=== PATIENT | female | born 1950 | race Caucasian/White ===

== ENCOUNTER 2024-08-15 23:00 | Emergency (ER) | payer MEDICARE ==
[~2024-08-15] VITALS: Ht 160 cm; Wt 76.7 kg
[~2024-08-15 23:00] MED LIST: AMIO200T44 PO; APIX2.5T PO; ASPI-1005 PO; ATOR40TA71 PO; CLOP75TA32 PO; DOCU100C33 PO; DONE5TAB33 PO; DULO30CA52 PO; GABA300T25; HYDR25TA67 PO; ISOS30TA92 PO; LISI20TA24 PO; MELA5TAB66 PO; METO10TA3 PO; METO50TA9 PO; MORP-108 PO; PANT40TA54 PO; POLY17PO4 PO; RAMI5CAP10 PO
[2024-08-15 23:02] VITALS: TEMP 98.4
--- NOTE | 2024-08-15 23:47 | ERN ---
General Chief Complaint: Trauma Activation Stated Complaint: FALL, HEAD TRAUMA, TAKING ELIQUIS Time Seen by MD: 23:06 History of Present Illness Initial Comments Patient is a 74-year-old female with atrial fibrillation on Eliquis. She is at a [employer] and she was packing up her boxes to move out. One box was particularly enlarge and when she tried to fill it or move it she lost her balance falling against the box and then bumping her head against the bed. She had no loss of consciousness. She has had poor balance for several years now and she has talked to her primary care doctor about it but he has not done anything about it. Currently patient has no symptoms other than pain on her head where she has a small laceration on the superior parietal region. Allergies: Coded Allergies: codeine (Unverified Allergy, Unknown, UNKNOWN, 04/16/24) PT STATES IT "MAKES ME SICK" Home Meds Active Scripts Isosorbide Mononitrate (Isosorbide Mononitrate ER) 30 Mg Tab.er.24h, 1 TAB PO DAILY for 30 Days, #30 TAB 0 Refills Prov:ROSALIA SHANKS MD 05/27/24 Metoprolol Succinate (Toprol Xl) 50 Mg Tab.er.24h, 50 MG PO DAILY, #30 TAB 0 Refills Prov:ROSALIA SHANKS MD 05/27/24 Lisinopril (Lisinopril) 20 Mg Tablet, 20 MG PO DAILY, #30 TAB Prov:ROSALIA SHANKS MD 05/27/24 Apixaban (Eliquis) 2.5 Mg Tablet, 2.5 MG PO BID, #60 TAB Prov:ROSALIA SHANKS MD 05/27/24 Amiodarone HCl (Pacerone) 200 Mg Tablet, 200 MG PO DAILY, #60 TAB Start once 400mg dose has been completed Prov:ROSALIA SHANKS MD 05/27/24 Amiodarone HCl (Pacerone) 200 Mg Tablet, 400 MG PO BID, #13 TAB 0 Refills Prov:ROSALIA SHANKS MD 05/27/24 Reported Medications Morphine Sulfate (Morphine Sulfate 15 mg Tab.sa) 15 Mg Tablet.er, 15 MG PO [id number] PRN for PAIN LEVEL 7 TO 10, TAB 05/22/24 Hydralazine HCl (Hydralazine HCl) 25 Mg Tablet, 10 MG PO AD PRN for INCREASED BLOOD PRESSURE, TAB 05/22/24 Melatonin (Melatonin) 5 Mg Tablet, 5 MG PO HS, TAB 05/22/24 Pantoprazole Sodium (Pantoprazole Sodium) 40 Mg Tablet.dr, 1 TAB PO DAILY for 30 Days, #30 TAB 0 Refills 05/22/24 Metoclopramide HCl (Metoclopramide HCl) 10 Mg Tablet, 10 MG PO TID, TAB 05/22/24 Ramipril (Altace) 5 Mg Capsule, 1 CAP PO DAILY for 30 Days, #30 CAP 0 Refills 05/22/24 Aspirin (ASPIRIN 81MG CHEW TAB) 81 Mg Tab.chew, 81 MG PO DAILY, TAB.CHEW 05/22/24 Docusate Sodium (Docusate Sodium) 100 Mg Capsule, 1 CAP PO BID for constipation for 7 Days, #14 CAP 0 Refills 05/22/24 Polyethylene Glycol 3350 (Miralax) 17 Gram Powd.pack, 1 PACKET PO DAILY for constipation for 2 Days, #2 PACKET 0 Refills dissolve in water 05/22/24 Donepezil HCl (Donepezil HCl) 5 Mg Tablet, 1 TAB PO DAILY for 30 Days, #30 TAB 0 Refills 05/22/24 Gabapentin (Gralise) 300 Mg Tab.er.24h, 300 MG BID 04/18/24 Clopidogrel Bisulfate (Clopidogrel) 75 Mg Tablet, 1 TAB PO DAILY 04/18/24 Duloxetine HCl (Duloxetine HCl) 30 Mg Capsule.dr, 1 CAP PO DAILY 04/18/24 Atorvastatin Calcium (Atorvastatin Calcium) 40 Mg Tablet, 1 TAB PO DAILY 04/18/24 Past Medical History Past Medical History: A-Fib, CAD, CVA, Diabetes-Type II, GERD, Heart Disease, Hypertension, Hypothyroid, [place], Renal Failure Past Surgical History: Pacer/AICD EENTM: (-) eye pain, (-) blurred vision, (-) tearing, (-) double vision, (-) ear pain, (-) ear discharge, (-) nose pain, (-) nose congestion, (-) throat pain, (-) Throat swelling, (-) mouth pain, (-) tooth pain, (-) mouth swelling, (-) other documentation Respiratory: (-) cough, (-) orthopnea, (-) short of breath, (-) stridor, (-) wheezing, (-) other documentation Cardiovascular: (-) chest pain, (-) edema, (-) palpitations, (-) syncope, (-) dyspnea on exertion, (-) other documentation Gastrointestinal/Abdominal: (-) nausea, (-) vomiting, (-) diarrhea, (-) abdominal pain, (-) abdominal distention, (-) constipation, (-) rectal bleeding, (-) dark stool/melena, (-) other documentation Musculoskeletal: (-) Neck pain, (-) back pain, (-) Flank Pain, (-) joint pain, (-) joint swelling, (-) muscle pain, (-) muscle stiffness, (-) gout, (-) other documentation Skin: (+) abrasion Neuro: (-) altered mental status, (-) headache, (-) syncope, (-) paralysis, (-) numbness, (-) seizure, (-) pre-existing deficit, (-) tremors, (-) weakness, (-) dizziness, (-) slurred speech, (-) vertigo, (-) other documentation Physical Exam General Appearance: (+) no apparent distress Orientation: (+) alert Head/Face Trauma: No Eye: bilateral eye normal inspection, bilateral eye PERRL, bilateral eye EOMI Ear, Nose, Throat: (+) hearing grossly normal, (+) normal ENT inspection Neck: (+) normal inspection, (+) supple Respiratory: (+) chest non-tender, (+) lungs clear Heart: (+) regular Results Laboratory and Microbiology Lab and Micro Result Laboratory Tests Test 08/15/24 23:10 08/15/24 23:50 Whole Blood Glucose 118 MG/DL (70-110) H White Blood Count 6.3 K/uL (4.8-10.8) Red Blood Count 4.14 MIL/uL (4.00-5.50) Hemoglobin 12.8 g/dL (12.0-16.0) Hematocrit 40.1 % (36-48) Mean Corpuscular Volume 96.9 fL (79-99) Mean Corpuscular Hemoglobin 30.9 pg (27.0-33.0) Mean Corpuscular Hemoglobin Concent 31.9 g/dL (32.0-36.0) L Red Cell Distribution Width 15.6 % (11.0-15.5) H Platelet Count 242 K/uL (130-400) Mean Platelet Volume 11.0 fL (7.5-10.5) H Immature Granulocyte % (Auto) 0.3 % (0-1) Neutrophils (%) (Auto) 60.5 % (40.0-77.0) Lymphocytes (%) (Auto) 30.2 % (21.0-51.0) Monocytes (%) (Auto) 8.1 % (3.0-13.0) Eosinophils (%) (Auto) 0.6 % (0.0-8.0) Basophils (%) (Auto) 0.3 % (0.0-5.0) Neutrophils # (Auto) 3.8 K/uL (1.8-7.7) Lymphocytes # (Auto) 1.9 K/uL (1.0-4.8) Monocytes # (Auto) 0.5 K/uL (0.1-1.0) Eosinophils # (Auto) 0.04 K/uL (0.00-0.70) Basophils # (Auto) 0.02 K/uL (0.00-0.20) Absolute Immature Granulocyte (auto 0.02 K/uL (0-1) Nucleated Red Blood Cells 0.0 % (0.0-0.19) Sodium Level 139 mmol/L (136-145) Potassium Level 4.2 mmol/L (3.5-5.1) Chloride Level 103 mmol/L (101-111) Carbon Dioxide Level 29 mmol/L (21-32) Blood Urea Nitrogen 16 mg/dL (7-18) Creatinine 1.2 mg/dL (0.5-1.0) H Glomerular Filtration Rate Calc 48 mL/min (>90) Random Glucose 115 mg/dL (70-105) H Total Calcium 8.4 mg/dL (8.5-10.1) L Troponin I High Sensitivity 16 ng/L (4-50) Labs Reviewed?: Yes MDM Given head trauma, even from a ground level fall, the patient meets criteria for a level two trauma activation as she is on blood thinners. The workup we will be quite limited I will get an EKG and check a troponin level. I will get a head CT scan noncontrast. I will repair the laceration on her head. Patient's EKG shows atrial paced complexes possible right bundle amita block possible old anterior infarct but no ST-elevation. Troponin was negative. Chemistry panel shows a creatinine of 1.2 which is baseline for her. CBC is also normal. CT scan shows no acute bleeds no fractures mild hydrocephalus. There is evidence of two old strokes. I examined the patient's scalp and she does not have a laceration she just has a contusion with some abrasions associated with the there is nothing to do for closure. It needs conservative wound care with bacitracin or triple antibiotic ointment. ED Course Orders Procedure Category Date Status Time Ct Head/Brain W/O CT 08/15/24 Resulted Contrast 23:27 12 Lead Ekg Tracing- EKG 08/15/24 Complete Technical 23:46 Cbc With Differential LAB 08/15/24 Complete 23:47 Basic Metabolic Panel LAB 08/15/24 Complete 23:47 Troponin I High LAB 08/15/24 Complete Sensitivity 23:47 Vital Signs Date Time Temp Pulse Resp B/P (MAP) Pulse Ox O2 Delivery O2 Flow Rate FiO2 08/15/24 23:02 98.4 85 16 144/77 97 Room Air 0 DX & DISP Disposition: Discharge Departure Impression: Primary Impression: Ground-level fall Condition: Stable Additional Instructions: Please return if you have postconcussive symptoms such as nausea vomiting diarrh ea inability to keep herself hydrated or eat food. If the wound on your head starts bleeding profusely also please come back to the emergency room, but right now it is simple contusion and does not need any sutures. Referrals: SELF,REFERRAL (PCP) TARA POOLE MD August 15, 2024 23:47
--- NOTE | 2024-08-15 23:58 | EKG ---
[facility] Test Date: 2024-08-15 Test Time: 23:54:12 Pat Name: NIKOLE BEGUM Department: [facility] Room: Gender: F [employer]pper: [id number] : 1950 Requested By: TARA POOLE Order Number: [id number] Reading MD: Maye Marcus Measurements Intervals [place] Rate: 70 P: 0 PA: 162 QRS: 36 QRSD: 150 T: 69 QT: 469 QTc: 505 Interpretive Statements Atrial-paced complexes IVCD, consider RBBB Inferior infarct, old Probable anterior infarct, old Compared to ECG 05/26/2024 17:08:55 Ventricular-paced complex(es) or rhythm no longer present Prolonged QT interval no longer present Myocardial infarct finding still present Electronically Signed On 08-16-2024 14:31:50 CDT by Maye Marcus Please click the below link to view image of tracing.
[2024-08-16 00:03] LABS: BASOPHILS # (AUTO) 0.02 K/uL (0.00-0.20); BASOPHILS % (AUTO) 0.3 % (0.0-5.0); EOSINOPHILS # (AUTO) 0.04 K/uL (0.00-0.70); EOSINOPHILS % (AUTO) 0.6 % (0.0-8.0); HEMATOCRIT 40.1 % (36-48); IMMATURE GRANULOCYTE ABSOLUTE 0.02 K/uL (0-1); LYMPHOCYTES # (AUTO) 1.9 K/uL (1.0-4.8); LYMPHOCYTES % (AUTO) 30.2 % (21.0-51.0); MEAN CORPUSCULAR HEMOGLOBIN 30.9 pg (27.0-33.0); MEAN CORPUSCULAR HGB CONC 31.9 g/dL (32.0-36.0); MEAN CORPUSCULAR VOLUME 96.9 fL (79-99); MONOCYTES # (AUTO) 0.5 K/uL (0.1-1.0); MONOCYTES % (AUTO) 8.1 % (3.0-13.0); NEUTROPHILS # (AUTO) 3.8 K/uL (1.8-7.7); NEUTROPHILS % (AUTO) 60.5 % (40.0-77.0); PLATELET COUNT (AUTO) 242 K/uL (130-400); RED BLOOD CELL COUNT(AUTO) 4.14 MIL/uL (4.00-5.50); RED CELL DISTRIBUTION WIDTH 15.6 % (11.0-15.5); WHITE BLOOD COUNT (AUTO) 6.3 K/uL (4.8-10.8)
[2024-08-16 00:09] LABS: CREATININE 1.2 mg/dL (0.5-1.0); POTASSIUM 4.2 mmol/L (3.5-5.1)
--- NOTE | 2024-08-16 00:11 | HMCIMG ---
CT HEAD/BRAIN W/O CONTRAST HISTORY: Head trauma COMPARISON: None TECHNIQUE: Multiple sequential axial images of the head were obtained from the base of the skull through vertex. Patient was not given contrast through intravenous route. FINDINGS: The ventricles and extraventricular CSF spaces are dilated consistent with cerebral atrophy. Nonspecific white matter changes seen. 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 There is no midline shift, mass effect or herniation. No acute intracranial bleed is seen. There is left sphenoid sinus opacification. IMPRESSION: 1. No acute intracranial bleed is seen. 2. Atrophy with white matter changes. CT was performed with one or more following dose reduction techniques: automated exposure control, adjustment of the mA and kv according to patient's size, or use of a iterative reconstruction technique.
--- NOTE | 2024-08-16 01:08 | NUR ---
[facility] CONTACTED FOR TRANSFER TO [facility]
--- NOTE | 2024-08-16 01:32 | NUR ---
REPORT GIVEN TO [facility] FROM [facility] AT THIS TIME.
--- NOTE | 2024-08-16 02:21 | NUR ---
[facility] ARRIVAL FOR PT BACK TO [facility] IN [place].
[2024-08-16 02:24] VITALS: BP 121/62; PULSE 70; RESP 18; O2SAT 96
--- NOTE | 2024-08-16 02:35 | NUR ---
[facility] DEPARTURE WITH PATIENT BACK TO [facility] IN [place]. PRIMARY NURSE CALLED [facility] FROM [facility] TO INFORM HER THAT PT WAS IN ROUTE BACK TO [facility] @ 0838.
== END 2024-08-16 02:35 ==
LOC: EDH 23:00
DX: S01.01XA Laceration without foreign body of scalp, initial encounter (principal); E03.9 Hypothyroidism, unspecified; E11.9 Type 2 diabetes mellitus without complications; I11.9 Hypertensive heart disease without heart failure; I21.9 Acute myocardial infarction, unspecified; I25.10 Atherosclerotic heart disease of native coronary artery without angina pectoris; I48.91 Unspecified atrial fibrillation; Z79.01 Long term (current) use of anticoagulants; Z79.02 Long term (current) use of antithrombotics/antiplatelets; Z79.82 Long term (current) use of aspirin; Z79.899 Other long term (current) drug therapy; Z86.73 Personal history of transient ischemic attack (TIA), and cerebral infarction without residual deficits; Z88.5 Allergy status to narcotic agent; Z95.810 Presence of automatic (implantable) cardiac defibrillator; W22.03XA Walked into furniture, initial encounter; Y93.89 Activity, other specified; Y92.89 Other specified places as the place of occurrence of the external cause; Y99.8 Other external cause status
CPT/HCPCS: 36415; 70450; 80048; 82948; 84484; 85025; 93005; 99284